=== PATIENT | male | born 1995 | race Caucasian/White ===

== ENCOUNTER 2024-03-15 17:20 | Emergency (ER) | payer OTHER, SELFPAY ==
[2024-03-15 17:20] VITALS: BP 123/89; PULSE 89; RESP 17; TEMP 36.4; O2SAT 100; BMI 19.5
--- NOTE | 2024-03-15 17:30 | ED.RN ---
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
--- NOTE | 2024-03-15 17:31 | ED.RN ---
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 [facility] IS CLOSED AT THIS TIME. PT. NOTIFIED HE WILL NEED TO GO TO [facility] IN THE MORNING TO DO DRUG AND ALCOHOL TESTING.
--- NOTE | 2024-03-15 18:30 | RAD_ITS ---
STUDY: X-RAY - LEFT HAND REASON FOR EXAM: Male, 28 years old. BITE TECHNIQUE: 3 view(s) of the hand. COMPARISON: None. FINDINGS: Normal radiocarpal articulation. Normal distal radioulnar joint. Normal visualized carpal bones. Normal carpal articulations Normal carpometacarpal articulation of the thumb. Normal second through fifth carpometacarpal joints. Normal metacarpi. Normal metacarpophalangeal joint of the thumb. Normal interphalangeal joint of the thumb. Normal proximal and distal phalanges of the thumb. Normal metacarpophalangeal joints of the second through fifth fingers. Normal proximal and distal interphalangeal joints of the second through fifth fingers. Normal phalanges of the second through fifth fingers. Focal soft tissue swelling of the thenar eminence RAD/Hand Min 3 Views IMPRESSION: Focal soft tissue swelling of the thenar eminence without evidence for acute fracture or radiopaque foreign body in soft tissues Electronically Signed: Min Johnson MD at 19:12 EST ,
[2024-03-15] MEDS: Diphth,Pertuss(Acell),Tet Vac 0.5 ML Vial IM (21:07)
[2024-03-15] MEDS: Amox/Clavulanate 875 MG Tablet PO (21:10)
--- NOTE | 2024-03-15 21:15 | EX.ED.GENINJ ---
HPI History of Present Illness Chief Complaint: Bite Informant: patient Narrative Narrative: Present dog bite bilateral hands few hours prior to arrival. 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 States he was a stray dog he was trying to get it off the road when he got bit. Bit left hand and right hand. Tetanus unknown. No allergies to any medications. Denies any past medical history. Tetanus Immunization: Unknown Prior similar symptoms: No PFSH PFSH Medical History no medical history Home Medications ?Medication ?Instructions ?Recorded ?Last Taken ?Type amoxicillin 875 mg-potassium 875 mg PO Q12H #14 TABLETS 03/15/24 Unknown Rx clavulanate 125 mg tablet Allergy/AdvReac Type Severity Reaction Status Date / Time tomato Allergy Intermediate Rash Verified 03/15/24 17:22 Surgical History no surgical history Social History Smoking Status: Never smoker ROS ROS ED Constitutional Constitutional ED: Denies chills, fever(s) or sweats Gastrointestinal Gastrointestinal: Denies nausea or vomiting Integumentary Reports wounds; Denies rash Neurologic Neurologic: Denies paresthesias or weakness EXAM Physical Exam Const Vital Signs: 03/15/24 17:20 Temperature 97.5 F L Temperature Source Temporal Pulse Rate 89 Respiratory Rate 17 Blood Pressure 123/89 H Blood Pressure Mean 100 Pulse Ox 100 Oxygen Delivery Method Room Air Positive well nourished and well developed General Appearance ED: well developed and NAD HEENT Reports moist mucous membranes normocephalic and atraumatic Eyes General Eye ED: Yes normal appearance of both eyes Neck full ROM Chest Wall Chest: Negative for tenderness Resp normal respiratory effort and normal air movement Effort and Inspection: symmetric chest movement; Negative for respiratory distress Cardio regular rate, regular rhythm and no murmurs Peripheral Pulses: pulses 2+ throughout GI normal to inspection, nondistended, normoactive bowel sounds and non-tender Palpation: Negative for guarding or rebound tenderness present Extremity Extremity Narrative: Right upper extremity: Hand there is dried blood dorsal ring and middle finger distally. No lacerations noted. No streaking. Left upper extremity: Superficial abrasion radial aspect of the wrist 1 cm. There is a 1 cm laceration thenar eminence with no active bleeding. There is abrasions noted at the volar aspect of the thumb. No streaking no drainage. General Extremety ED: Negative for edema General Extremity: Negative for edema Neuro oriented x3 and no sensory deficits noted Sensorium / Orientation: awake and alert Skin Skin Narrative: See above MDM MDM MDM Narrative Medical decision making narrative: Interventions / MDM: Differential diagnosis: Dog bite bilateral hands, tetanus vaccination Diagnosis considered but do not suspect: Foreign body however x-ray negative My EKG interpretation: N/A Imaging independently reviewed and interpreted by myself: Left hand x-ray 3 views: Mild soft tissue swelling there is no radiopaque foreign bodies. External documents reviewed: N/A Test considered but not ordered:N/A ED course: Patient x-ray through triage of the hand negative for any rib pick foreign bodies. Dog bite multiple aspects hands primary left side. Left hand soaked in Betadine mix water by nursing. Dressing by nursing. Discussed with patient no closure to avoid infection. He started on Augmentin. Tetanus is updated. He will follow-up with occupational health with strict return precautions. All questions were answered. Re-evaluation: stable Disposition discussed with patient/family/significant other: Patient Case discussed with consulting clinician: N/A This note was generated with [employer] dictation software. It may contain incorrect words, spelling, and punctuation that were not noted in checking the note before signing. Radiography Diagnostic Testing: Clinical Impression(s) from Imaging Studies Hand X-Ray 03/15/24 18:30 IMPRESSION: Focal soft tissue swelling of the thenar eminence without evidence for acute fracture or radiopaque foreign body in soft tissues Electronically Signed: Min Johnson MD at 19:12 EST Reading Location ID and State: [address] [place] [address] Tel , Service support , Discharge Plan Triage Chief Complaint: Bite ED Provider: Ming Mcintosh Dx/Rx/DC Orders Clinical Impression: Tetanus toxoid vaccination administered at current visit, Dog bite of left hand, Dog bite of right hand Instructions: ED Dog Bite Prescriptions: New amoxicillin-pot clavulanate 875-125 mg tablet 875 mg PO Q12H Qty: 14 0RF Primary Care Provider: Jimy Joy Referrals: Jimy Joy MD [Primary Care Provider] - Activity Restrictions/Additional Instructions: Left hand x-ray negative. Take and finish antibiotic as prescribed. Your tetanus was updated. Monitor for signs of infection for return. Daily wound care warm soap and water. Dressings daily. Otherwise follow-up with occupational health. Print Language: Togolese Disposition Disposition: Home, Self Care Discharge Date/Time: 03/15/24 21:33
== END 2024-03-15 21:33 | disposition home or self-care (01) ==
PROVIDERS: Emergency Provider Emergency Medicine; PCP Family Medicine; Visit Provider Emergency Medicine
DX: S60.871A Other superficial bite of right wrist, initial encounter (principal); S60.872A Other superficial bite of left wrist, initial encounter; S60.812A Abrasion of left wrist, initial encounter; S60.312A Abrasion of left thumb, initial encounter; W54.0XXA Bitten by dog, initial encounter; Y92.410 Unspecified street and highway as the place of occurrence of the external cause; Y99.0 Civilian activity done for income or pay; Z23 Encounter for immunization
CPT/HCPCS: 73130; 90715; 99283; A4216